=== PATIENT | female | born 2000 | race Asian ===

== ENCOUNTER → 2025-02-03 | Outpatient (CLI) | payer MEDICAID, SELFPAY ==
[2025-02-03 18:12] LABS: AST(SGOT) 24 U/L (<=31); Alanine Aminotransfer ALT/SGPT < 5 U/L (<=34); Cholesterol 132 mg/dL (<=190); High Density Lipoprotein 65 mg/dL; Low Density Lipoprotein Calc. 60 mg/dL; Triglycerides 34 mg/dL; Very Low Density Lipoprotein 7 mg/dL (5-40); cholesterol:hdl ratio screen 2.02
[2025-02-05 04:07] LABS: LDL, Direct 120295 63 mg/dL (0-99)
== END | disposition home or self-care (01) ==
LOC: MTLAB 14:23
PROVIDERS: Referring Provider Physician Assistant; Visit Provider Physician Assistant
DX: L70.0 Acne vulgaris (principal); Z79.899 Other long term (current) drug therapy
CPT/HCPCS: 36415; 80061; 83721; 84450; 84460